=== PATIENT | male | born 1995 | race Caucasian/White ===

== ENCOUNTER 2017-08-31 17:12 | Emergency (ER) | payer MEDICAID, OTHER ==
[~2017-08-31] VITALS: Ht 188 cm; Wt 73.0 kg
[2017-08-31] MEDS ORDERED: NO HOME MEDS (18:03)
[2017-08-31] MEDS ORDERED: BUPIVAcaine 0.5% inj/PF 30 ml vial IJ ONE (20:00)
[2017-08-31] MEDS ORDERED: naproxen 500mg tablet PO ONE (20:00)
[2017-08-31] MEDS ORDERED: acetaminophen 325mg tablet PO ONE (20:00)
[2017-08-31 21:36] VITALS: BP 135/73
== END 2017-08-31 21:37 | disposition home or self-care (01) ==
LOC: ER 17:15
DX: S61.217A Laceration without foreign body of left little finger without damage to nail, initial encounter (principal); W45.8XXA Other foreign body or object entering through skin, initial encounter; Y93.89 Activity, other specified; Y92.89 Other specified places as the place of occurrence of the external cause; Y99.8 Other external cause status
CPT/HCPCS: 12001; 99283; A6222; A6449; J3490